=== PATIENT | male | born 1975 | race Hispanic/Latino ===

== ENCOUNTER 2016-07-03 11:55 | Emergency (ER) | payer MEDICARE, OTHER ==
[2016-07-03 12:01] VITALS: BP 116/62; PULSE 70; TEMP 97
[2016-07-03 12:02] VITALS: BMI 39.9
[2016-07-03 12:26] VITALS: RESP 16; O2SAT 100
--- NOTE | 2016-07-03 13:01 | ED PDOC ---
HPI: Back Time Seen by Provider: 07/03/16 12:29 Chief Complaint (Nursing): Lower Extremity Problem/Injury Chief Complaint (Provider): Back Pain History Per: Patient History/Exam Limitations: no limitations Onset/Duration Of Symptoms: Other (ongoing) Current Symptoms Are (Timing): Still Present Severity: Mild Additional Complaint(s): Patient is a 41 year old male presenting to the ED complaining of back pain for the past year or so. Patient reports waking up with the pain every morning. Back pain is associated with bilateral knee pain. Patient fell a few days ago onto his back while coming off the bus. Patient has not taken medication or seen his PMD about his symptoms. Patient reports he was going to see his PMD today but his daughter became injured at school so he came here to be seen instead. Patient denies bowel or bladder dysfunction. He states that since the pain started about 1 year ago he has not been taking any [id number] medications for pain relief. PMD: Shaik Castillo Past Medical History Reviewed: Historical Data, Nursing Documentation, Vital Signs Vital Signs: Last Vital Signs Temp 97 F L 07/03/16 12:24 Pulse 70 07/03/16 12:24 Resp 16 07/03/16 12:24 BP 116/62 07/03/16 12:24 Pulse Ox 100 07/03/16 12:24 - Medical History PMH: No Chronic Diseases - Surgical History Surgical History: Cholecystectomy - Family History Family History: States: Diabetes - Living Arrangements Living Arrangements: With Family - Social History Current smoker - smoking cessation education provided: No Alcohol: None Drugs: Denies - Home Medications Home Medications: Ambulatory Orders Medication Instructions Recorded Cyclobenzaprine [Cyclobenzaprine 10 mg PO TID PRN #15 tab 07/03/16 HCl] Ibuprofen [Motrin] 600 mg PO Q6 PRN #15 tab 07/03/16 - Allergies Allergies/Adverse Reactions: Allergies Allergy/AdvReac Type Severity Reaction Status Date / Time No Known Allergies Allergy Verified 07/03/16 12:23 Review of Systems ROS Statement: Except As Marked, All Systems Reviewed And Found Negative Constitutional: Negative for: Fever, Chills Cardiovascular: Negative for: Chest Pain Respiratory: Negative for: Cough, Shortness of Breath Gastrointestinal: Negative for: Nausea, Vomiting Genitourinary Male: Negative for: Dysuria, Frequency, Incontinence Musculoskeletal: Positive for: Back Pain, Leg Pain (bilateral knee pain), Other (ongoing for about one year. ) Physical Exam - Reviewed Nursing Documentation Reviewed: Yes Vital Signs Reviewed: Yes - Physical Exam Appears: Positive for: Well, Non-toxic, No Acute Distress Head Exam: Positive for: ATRAUMATIC, NORMAL INSPECTION, NORMOCEPHALIC Skin: Positive for: Normal Color, Warm, DRY Eye Exam: Positive for: Normal appearance, EOMI Cardiovascular/Chest: Positive for: Regular Rate, Rhythm Respiratory: Positive for: Normal Breath Sounds Back: Positive for: Other (left sided lower paraspinal tenderness, negative bilateral leg raise). Negative for: Vertebral Tenderness (no midline tenderness ) Extremity: Positive for: Normal ROM (full ROM to both knees with pain). Negative for: Pedal Edema, Calf Tenderness, Deformity Neurologic/Psych: Positive for: Alert, Oriented, Gait (steady) - Laboratory Results Urine dip results: Positive for: Ketones (trace), Protein (trace). Negative for : Leukocyte Esterase, Blood, Nitrate, Glucose, Bilirubin - ECG O2 Sat by Pulse Oximetry: 100 (RA) Pulse Ox Interpretation: Normal - Other Rad L/S Spine X-ray X-Ray: Interpreted by Me, Viewed By Me X-Ray Interpretation: no fx, no dis, no acute finding Right and Left knee x-rays X-Ray: Interpreted by Me, Viewed By Me X-Ray Interpretation: degenerative changes, no fx or dis Medical Decision Making Medical Decision Making: Time: 12:30 Impression: 41 year old male with chronic back pain and knee pain Plan: UDip XR Rt Knee XR Lt Knee Motrin 600 mg PO XR LS Spine Patient aware of x-ray results. He states he feels better after Motrin dose. Urine dip is negative for blood or leukocytes. Patient was referred to orthopedist on-call for follow-up. Prescription given for Motrin and Flexeril. Scribe Attestation: Documented by Jamey Evans acting as a scribe for Sydney Cramer. Provider Attestation: All medical record entries made by the Scribe were at my direction and personally dictated by me. I have reviewed the chart and agree that the record accurately reflects my personal performance of the history, physical exam, medical decision making, and the department course for this patient. I have also personally directed, reviewed, and agree with the discharge instructions and disposition Disposition - Clinical Impression Clinical Impression: Back pain, Knee pain - Patient ED Disposition Is Patient to be Admitted: No Counseled Patient/Family Regarding: Studies Performed, Diagnosis, Need For Followup, Rx Given - Disposition Referrals: Sid Wasserman MD [Staff Provider] - Disposition: Routine/Home Disposition Time: 15:23 Condition: IMPROVED Additional Instructions: Take rx meds as directed. Follow up with orthopedist or primary care doctor in 2-3 days. Prescriptions: Cyclobenzaprine [Cyclobenzaprine HCl] 10 mg PO TID PRN #15 tab PRN Reason: Muscle Pain Ibuprofen [Motrin] 600 mg PO Q6 PRN #15 tab PRN Reason: Pain, Moderate (4-7) Instructions: Back Pain (ED), Knee Pain (ED)
--- NOTE | 2016-07-03 17:17 | RAD ---
PROCEDURE: Radiographs of the Lumbar Spine. HISTORY: pain No antecedent history of trauma provided. COMPARISON: No prior. FINDINGS: BONES: Normal alignment. No listhesis. No fracture. DISC SPACES: Unremarkable. OTHER FINDINGS: None. IMPRESSION: No significant or acute findings to account for/ related to the clinical presentation. Concordant results with the preliminary interpretation rendered by the emergency department physician procedure.
--- NOTE | 2016-07-03 17:18 | RAD ---
PROCEDURE: Right Knee Radiographs. HISTORY: Pain. No history of recent/ related trauma provided COMPARISON: None. FINDINGS: BONES: No acute fractures. JOINTS: Mild degenerative changes primarily affecting medial compartment and patellofemoral joint. JOINT EFFUSION: None. OTHER FINDINGS: None. IMPRESSION: No acute findings related to/accounting for the clinical presentation. Concordant results with the preliminary interpretation rendered by the emergency department physician procedure.
--- NOTE | 2016-07-03 17:19 | RAD ---
PROCEDURE: Left Knee Radiographs. HISTORY: Pain. No history of recent/ related trauma provided COMPARISON: July 03, 2016. Right knee FINDINGS: BONES: No acute fracture. JOINTS: Degenerative changes approximately symmetrical compared to the contralateral, right knee. JOINT EFFUSION: None. OTHER FINDINGS: None. IMPRESSION: Mild, symmetrical degenerative changes compared to left knee. No acute findings. Concordant results with the preliminary interpretation rendered by the emergency department physician procedure.
== END 2016-07-03 15:37 | disposition home or self-care (01) ==
LOC: H.ER 11:55
DX: M54.9 Dorsalgia, unspecified (principal); M25.562 Pain in left knee; M25.561 Pain in right knee; V78.4XXA Person boarding or alighting from bus injured in noncollision transport accident, initial encounter; Y93.9 Activity, unspecified

== ENCOUNTER 2016-12-20 08:31 | Emergency (ER) | payer MEDICARE, OTHER ==
[2016-12-20 08:31] VITALS: BMI 39.9
[2016-12-20 08:36] VITALS: BP 124/73; PULSE 92; RESP 16; TEMP 98.7; O2SAT 96
--- NOTE | 2016-12-20 08:57 | ED PDOC ---
Upper Extremity Pain/Injury Time Seen by Provider: 12/20/16 08:53 Chief Complaint (Nursing): Upper Extremity Problem/Injury Additional Complaint(s): Patient is a 41 y/o M presenting with R middle finger pain. He reports that he was helping his friend move 2 days ago and may have dropped a box on his hand or move a box awkwardly. He denies any fever. He reports that his R middle finger is painful and mildly swollen. Denies redness. Denies DM or IVDA Past Medical History Vital Signs: Last Vital Signs Temp 98.7 F 12/20/16 08:36 Pulse 92 H 12/20/16 08:36 Resp 16 12/20/16 08:36 BP 124/73 12/20/16 08:36 Pulse Ox 96 12/20/16 08:36 - Medical History PMH: Denies: Diabetes - Surgical History Surgical History: Cholecystectomy - Family History Family History: States: Unknown Family Hx, Diabetes - Home Medications Home Medications: Ambulatory Orders Medication Instructions Recorded Cyclobenzaprine [Cyclobenzaprine 10 mg PO TID PRN #15 tab 07/03/16 HCl] Ibuprofen [Motrin] 600 mg PO Q6 PRN #15 tab 07/03/16 - Allergies Allergies/Adverse Reactions: Allergies Allergy/AdvReac Type Severity Reaction Status Date / Time No Known Allergies Allergy Verified 12/20/16 08:35 Review of Systems Constitutional: Negative for: Fever, Chills Cardiovascular: Negative for: Chest Pain Respiratory: Negative for: Shortness of Breath Musculoskeletal: Positive for: Hand Pain Skin: Negative for: Rash Neurological: Negative for: Weakness, Numbness Physical Exam - Reviewed Nursing Documentation Reviewed: Yes Vital Signs Reviewed: Yes - Physical Exam Appears: Positive for: Well, Non-toxic Head Exam: Positive for: ATRAUMATIC, NORMAL INSPECTION, NORMOCEPHALIC Skin: Positive for: Normal Color Extremity: Positive for: Other (tenderness to base of R middle finger. Normal ROM. Normal strength. Distal pulses intact. No swelling, erythema or warmth.) - ECG O2 Sat by Pulse Oximetry: 96 Medical Decision Making Medical Decision Making: Xray negative for fracture. Pain improved after toradol. Disposition - Clinical Impression Clinical Impression: Finger pain - Disposition Disposition: Routine/Home Disposition Time: 09:25 Condition: GOOD Additional Instructions: Follow-up with PMD within 2 days. Return to ED if condition worsens. Motrin for pain. Instructions: Arthralgia (ED) Forms: [employer] (French)
--- NOTE | 2016-12-20 09:26 | RAD ---
PROCEDURE: Right Hand Radiographs. HISTORY: swelling to middle finger COMPARISON: None. FINDINGS: BONES: Normal. No fracture. JOINTS: Normal. No osteoarthritic changes. SOFT TISSUES: Normal. OTHER FINDINGS: None. IMPRESSION: Normal right hand radiographs.
== END 2016-12-20 09:37 | disposition home or self-care (01) ==
LOC: H.ER 08:31
DX: M79.644 Pain in right finger(s) (principal)
CPT/HCPCS: 73130; 96372; 99283; J1885

== ENCOUNTER 2017-03-20 09:53 | Emergency (ER) | payer MEDICARE, OTHER ==
[2017-03-20 09:54] VITALS: BMI 39.9
[2017-03-20 09:59] VITALS: BP 135/81; PULSE 84; TEMP 98; O2SAT 98
[2017-03-20 10:11] VITALS: RESP 18
--- NOTE | 2017-03-20 10:34 | ED PDOC ---
Upper Extremity Pain/Injury Time Seen by Provider: 03/20/17 10:15 Chief Complaint (Nursing): Finger,Hand,&Wrist Chief Complaint (Provider): finger swelling History Per: Patient (42 y/o male here with left hand pain associated with swelling of finger tip of pierce. 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 No fevers/chills. ) Past Medical History Reviewed: Historical Data, Nursing Documentation, Vital Signs Vital Signs: Last Vital Signs Temp 98 F 03/20/17 10:07 Pulse 84 03/20/17 10:07 Resp 18 03/20/17 10:07 BP 135/81 03/20/17 10:07 Pulse Ox 98 03/20/17 10:07 - Medical History PMH: Denies: Diabetes - Surgical History Surgical History: Cholecystectomy - Family History Family History: States: Unknown Family Hx, Diabetes - Home Medications Home Medications: Ambulatory Orders Medication Instructions Recorded Cyclobenzaprine [Cyclobenzaprine 10 mg PO TID PRN #15 tab 07/03/16 HCl] Ibuprofen [Motrin] 600 mg PO Q6 PRN #15 tab 07/03/16 Cephalexin [Keflex] 500 mg PO QID #28 capsule 03/20/17 Ibuprofen [Motrin] 600 mg PO Q8 PRN #21 tab 03/20/17 - Allergies Allergies/Adverse Reactions: Allergies Allergy/AdvReac Type Severity Reaction Status Date / Time No Known Allergies Allergy Verified 12/20/16 08:35 Review of Systems ROS Statement: Except As Marked, All Systems Reviewed And Found Negative Musculoskeletal: Positive for: Hand Pain Physical Exam - Reviewed Nursing Documentation Reviewed: Yes Vital Signs Reviewed: Yes - Physical Exam Appears: Positive for: Well, Non-toxic, No Acute Distress Head Exam: Positive for: ATRAUMATIC, NORMAL INSPECTION, NORMOCEPHALIC Skin: Positive for: Normal Color, Warm, DRY Eye Exam: Positive for: EOMI, Normal appearance, PERRL ENT: Positive for: Normal ENT Inspection Neck: Positive for: Normal, Painless ROM Cardiovascular/Chest: Positive for: Regular Rate, Rhythm Respiratory: Positive for: CNT, Normal Breath Sounds Gastrointestinal/Abdominal: Positive for: Normal Exam, Bowel Sounds, Soft Back: Positive for: Normal Inspection Extremity: Positive for: Normal ROM, Swelling (swelling distal tip of fourth digit (+) paronychial abscess noted with fluctuance.) Neurologic/Psych: Positive for: Alert, Oriented - ECG O2 Sat by Pulse Oximetry: 98 - Progress ED Course And Treament: tdap 0.5 ml IM x 1 dose Verbal consent prior to procedure. Betadiene prep. Small incision made at paronychial/nail edge with moderate prululent discharge expressed. Small amt of 1/[address] Finger dressed with gauze dressing. Accucheck: 72 Wound cx sent. patient advised f/u in 2 days for removal of guaze and re-evaluation. Disposition - Clinical Impression Clinical Impression: Acute paronychia of finger - Patient ED Disposition Is Patient to be Admitted: No - Disposition Referrals: FAMILY PROVIDER,NO [Primary Care Provider] - Disposition: Routine/Home Disposition Time: 10:35 Condition: FAIR Additional Instructions: RETURN TO ED IN 2 DAY FOR EVALUATION OF FINGER Prescriptions: Cephalexin [Keflex] 500 mg PO QID #28 capsule Ibuprofen [Motrin] 600 mg PO Q8 PRN #21 tab PRN Reason: Pain, Moderate (4-7) Instructions: Paronychia (ED), Abscess Incision and Drainage (ED) Forms: [employer] (Lao), [facility] ED School/Work Excuse
== END 2017-03-20 10:54 | disposition home or self-care (01) ==
LOC: H.ER 09:53 → SUPCPDRO 09:53 → H.ER 10:54
DX: L03.012 Cellulitis of left finger (principal)

== ENCOUNTER 2017-06-23 02:21 | Emergency (ER) | payer OTHER, MEDICARE ==
[2017-06-23 02:22] VITALS: BMI 39.9
[2017-06-23 02:38] VITALS: BP 113/71; PULSE 82; RESP 18; TEMP 97.8; O2SAT 96
[2017-06-23] MEDS ORDERED: Sodium Chloride 0.9% 1,000 ML IV STA (02:41)
--- NOTE | 2017-06-23 02:52 | ED PDOC ---
HPI: Allergic Reaction Time Seen by Provider: 06/23/17 02:40 Chief Complaint (Nursing): Allergic Reaction Chief Complaint (Provider): Swelling of the upper lip x 1 hour History Per: Patient History/Exam Limitations: no limitations Onset/Duration Of Symptoms: Hrs Current Symptoms Are (Timing): Still Present Context: Food (?) Possible Cause: Unknown Home/EMS Treatment: Benadryl (50 mg at home ) Additional Complaint(s): 42 yo male with no history of allergies presents with swelling of the upper lip for 1 hour. Pt states he ate pizza for lunch and a fried chicken sandwhich which was made at home at approx 1 am. PT states that he felt like his lip was swelling but didn't pay attention to it until his family began to make fun of his swollen upper lip. Pt took 50mg of benadryl and when it did not improve he came to the Er. Pt denies swelling/tingling or itchiness in the throat. Pt denies SOB or rash. Past Medical History Reviewed: Historical Data, Nursing Documentation, Vital Signs Vital Signs: Last Vital Signs Temp 97.8 F 06/23/17 02:30 Pulse 82 06/23/17 02:30 Resp 18 06/23/17 02:30 BP 113/71 06/23/17 02:30 Pulse Ox 96 06/23/17 02:30 - Medical History PMH: No Chronic Diseases Denies: Diabetes - Surgical History Surgical History: Cholecystectomy - Family History Family History: States: Unknown Family Hx, Diabetes - Home Medications Home Medications: Ambulatory Orders Medication Instructions Recorded Cyclobenzaprine [Cyclobenzaprine 10 mg PO TID PRN #15 tab 07/03/16 HCl] Ibuprofen [Motrin] 600 mg PO Q6 PRN #15 tab 07/03/16 Cephalexin [Keflex] 500 mg PO QID #28 capsule 03/20/17 Ibuprofen [Motrin] 600 mg PO Q8 PRN #21 tab 03/20/17 DiphenhydrAMINE [Benadryl] 50 mg PO Q6H #20 cap 06/23/17 Famotidine [Pepcid] 20 mg PO DAILY #6 tab 06/23/17 predniSONE [predniSONE Tab] 20 mg PO DAILY #12 tab 06/23/17 - Allergies Allergies/Adverse Reactions: Allergies Allergy/AdvReac Type Severity Reaction Status Date / Time No Known Allergies Allergy Verified 06/23/17 02:39 Review of Systems ROS Statement: Except As Marked, All Systems Reviewed And Found Negative Constitutional: Negative for: Fever, Chills ENT: Positive for: Other (Upper lip edema ) Respiratory: Negative for: Shortness of Breath, Wheezing Physical Exam - Reviewed Nursing Documentation Reviewed: Yes Vital Signs Reviewed: Yes - Physical Exam Appears: Positive for: Well, Non-toxic, No Acute Distress Head Exam: Positive for: ATRAUMATIC, NORMAL INSPECTION, NORMOCEPHALIC Skin: Positive for: Normal Color, Warm, DRY Eye Exam: Positive for: Normal appearance ENT: Positive for: Pharynx Is, Other (No edema of the tongue). Negative for: Normal ENT Inspection ((+) edema of the upper lip), Pharyngeal Erythema Neck: Positive for: Normal, Painless ROM Cardiovascular/Chest: Positive for: Regular Rate, Rhythm Respiratory: Positive for: CNT, Normal Breath Sounds Gastrointestinal/Abdominal: Positive for: Normal Exam, Bowel Sounds, Soft Back: Positive for: Normal Inspection Extremity: Positive for: Normal ROM Neurologic/Psych: Positive for: Alert, Oriented - ECG O2 Sat by Pulse Oximetry: 96 Pulse Ox Interpretation: Normal Disposition - Clinical Impression Clinical Impression: Allergic reaction - Patient ED Disposition Is Patient to be Admitted: No Counseled Patient/Family Regarding: Diagnosis, Need For Followup, Rx Given - Disposition Disposition: Routine/Home Disposition Time: 05:27 Condition: STABLE Prescriptions: DiphenhydrAMINE [Benadryl] 50 mg PO Q6H #20 cap Famotidine [Pepcid] 20 mg PO DAILY #6 tab predniSONE [predniSONE Tab] 20 mg PO DAILY #12 tab Instructions: Drug Allergy Forms: [employer] (Dominican) Medical Decision Making Medical Decision Making: IV fluids, pepcid and solumedrol given in ER. Case discussed with Dr. Desai. Edema localized to upper lip.
== END 2017-06-23 05:50 | disposition home or self-care (01) ==
LOC: H.ER 02:21
DX: T78.40XA Allergy, unspecified, initial encounter (principal)
CPT/HCPCS: 96360; 99283; J2930; J7040

== ENCOUNTER 2018-01-08 13:07 | Emergency (ER) | payer MEDICARE, OTHER ==
[2018-01-08 13:15] VITALS: BMI 42.0
[2018-01-08] MEDS ORDERED: Lidocaine PF 2% (5 ml) Inj (For Cardiac Arrhy) ONE (14:03)
[2018-01-08 15:05] VITALS: BP 130/80; PULSE 72; RESP 18; TEMP 98; O2SAT 99
--- NOTE | 2018-01-08 15:27 | ED PDOC ---
Upper Extremity Pain/Injury Chief Complaint (Provider): Left Index Finger Pain History Per: Patient History/Exam Limitations: no limitations Onset/Duration Of Symptoms: Days Current Symptoms Are (Timing): Still Present Quality: "Pain" Additional Complaint(s): 42 year old male presents to the ER for an evaluation of left finger pain. Patient states there is an infection of his left 2nd digit onset for 2 days. He reports there was swelling on his finger before and the area was drained. He denies fever, nail biting or trauma. His Tetanus is UTD. PMD: Shaik Castlilo <Che Gibson S - Last Filed: 01/08/18 16:33> <Mikhail Delgado - Last Filed: 01/09/18 16:52> Time Seen by Provider: 01/08/18 14:10 Chief Complaint (Nursing): Upper Extremity Problem/Injury Past Medical History Reviewed: Historical Data, Nursing Documentation, Vital Signs Vital Signs: Last Vital Signs Temp 98 F 01/08/18 15:04 Pulse 72 01/08/18 15:04 Resp 18 01/08/18 15:04 BP 130/80 01/08/18 15:04 Pulse Ox 99 01/08/18 15:04 - Medical History PMH: No Chronic Diseases Denies: Diabetes - Surgical History Surgical History: Cholecystectomy - Family History Family History: States: Unknown Family Hx, Diabetes - Social History Current smoker - smoking cessation education provided: No Alcohol: Social Drugs: Denies <Che Gibson S - Last Filed: 01/08/18 16:33> Vital Signs: Last Vital Signs Temp 98 F 01/08/18 15:04 Pulse 72 01/08/18 15:04 Resp 18 01/08/18 15:04 BP 130/80 01/08/18 15:04 Pulse Ox 99 01/08/18 16:36 <Mikhail Delgado - Last Filed: 01/09/18 16:52> - Home Medications Home Medications: Ambulatory Orders Medication Instructions Recorded Cyclobenzaprine [Cyclobenzaprine 10 mg PO TID PRN #15 tab 07/03/16 HCl] Ibuprofen [Motrin] 600 mg PO Q6 PRN #15 tab 07/03/16 Ibuprofen [Motrin] 600 mg PO Q8 PRN #21 tab 03/20/17 RX: Cephalexin [Keflex] 500 mg PO QID #28 capsule 03/20/17 DiphenhydrAMINE [Benadryl] 50 mg PO Q6H #20 cap 06/23/17 Famotidine [Pepcid] 20 mg PO DAILY #6 tab 06/23/17 RX: predniSONE [predniSONE Tab] 20 mg PO DAILY #12 tab 06/23/17 Cephalexin [cephalexin] 500 mg PO Q8 #21 cap 01/08/18 - Allergies Allergies/Adverse Reactions: Allergies Allergy/AdvReac Type Severity Reaction Status Date / Time No Known Allergies Allergy Verified 06/23/17 02:39 Review of Systems ROS Statement: Except As Marked, All Systems Reviewed And Found Negative Constitutional: Negative for: Fever Musculoskeletal: Positive for: Other (left 2nd digit pain) Psych: Negative for: Suicidal ideation (homicidal ideation) <Che Gibson - Last Filed: 01/08/18 16:33> Physical Exam - Reviewed Nursing Documentation Reviewed: Yes Vital Signs Reviewed: Yes - Physical Exam Appears: Positive for: Well, Non-toxic, No Acute Distress Head Exam: Positive for: ATRAUMATIC, NORMAL INSPECTION, NORMOCEPHALIC Skin: Positive for: Normal Color, Warm, Dry. Negative for: Rash Eye Exam: Positive for: Normal appearance Extremity: Positive for: Other ((+) mild tenderness, fluctuance of radial nail margin, (-) felon of left 2nd digit). Negative for: Tenderness, Deformity, Swel ling Neurologic/Psych: Positive for: Alert, Oriented (x3). Negative for: Motor/Sensory Deficits <Che Gibson - Last Filed: 01/08/18 16:33> - ECG O2 Sat by Pulse Oximetry: 99 (RA) Pulse Ox Interpretation: Normal <Che Gibson - Last Filed: 01/08/18 16:33> Medical Decision Making Medical Decision Making: Time: 1410 PROCEDURE: DIGITAL BLOCK Performed by the emergency provider: Che Gibson PA-C Location: left 2nd digit Preparation: The area was prepped, cleaned. Procedure: Finger anesthetized using 1% plain lido, digital block. Incision and drainage was performed on the appropriate site with mild purulence expressed. Post-Procedure: The patient tolerated the procedure well, and there were no complications. bacitracin and d/s/d applied. Scribe Attestation: Documented by Delfino García, acting as a scribe for Che Gibson PA-C. Provider Scribe Attestation: All medical record entries made by the Scribe were at my direction and personally dictated by me. I have reviewed the chart and agree that the record accurately reflects my personal performance of the history, physical exam, medical decision making, and the department course for this patient. I have also personally directed, reviewed, and agree with the discharge instructions and disposition. <Che Gibson - Last Filed: 01/08/18 16:33> Disposition - Disposition Disposition: Routine/Home Disposition Time: 14:23 <Che Gibson - Last Filed: 01/08/18 16:33> <Mikhail Delgado - Last Filed: 01/09/18 16:52> - Clinical Impression Clinical Impression: Paronychia, Shoulder injury, Acute paronychia of finger - Disposition Condition: IMPROVED Prescriptions: Cephalexin [cephalexin] 500 mg PO Q8 #21 cap Instructions: Paronychia Forms: [employer] (Scottish) Addendum Addendum: 01/09/18 16:52 Reviewed PA chart and agree. <Mikhail Delgado - Last Filed: 01/09/18 16:52>
== END 2018-01-08 15:04 | disposition home or self-care (01) ==
LOC: H.ER 13:07
DX: L03.012 Cellulitis of left finger (principal)